=== PATIENT | female | born 1955 | race Caucasian/White ===

== ENCOUNTER → 2018-02-04 12:24 | Outpatient (CLI) | payer MEDICAID, SELFPAY ==
[2018-02-04 12:45] VITALS: BP 126/65; PULSE 88; RESP 16; O2SAT 100; BMI 31.4
--- NOTE | 2018-02-04 13:00 | RAD_ITS ---
PROCEDURE: LUMBAR MYELOGRAM DATE OF EXAMINATION: February 04, 2018. INDICATION: Female, 62 years old. Low back pain. PHYSICIAN: Blanco Valiente M.D. CONSENT: The patient's history and physical findings were reviewed. The lumbar myelogram procedure was discussed with the patient prior to signing a consent. SEDATION: Local anesthesia with 3 mL of 1% lidocaine was used. FLUOROSCOPY TIME (if supplied): (0:56) minutes/seconds Injection Information: 15 cc of Isovue-M 200. Number of images obtained: 4 TECHNIQUE: Digital fluoroscopy was used to identify a safe approach for the lumbar myelogram. The back was prepped and draped in usual fashion. Local anesthesia was utilized. Under fluoroscopic guidance a 22-gauge spinal needle was inserted into the spinal canal at the L4-5 level. 15 mL of Isovue 200 M was injected into the spinal canal. The patient is status post fusion and laminectomy at the L2-L3 and L3-L4 levels. There is good opacification of the spinal fluid. The nerve root sheaths are asymmetrically identified. There is no extradural defects. RAD/Lumbar Myelogram IMPRESSION: Normal lumbar myelogram. CT scan will follow. Electronically Signed: Blanco Valiente MD at 14:13 EST Tel [phone], Service support ,
--- NOTE | 2018-02-04 15:30 | CT_ITS ---
STUDY: CT LUMBAR SPINE WITH INTRATHECAL CONTRAST (LUMBAR CT MYELOGRAM) REASON FOR EXAM: Female, 62 years old. Chronic low back pain. Prior laminectomy and fusion at the L2-L3 and L3-L4 levels with prosthetic disc at the L3-L4 level. RADIATION DOSAGE (If Supplied By Facility): CTDIvol = ( 21.45 ) mGy, DLP = ( 601.69 ) mGycm TECHNIQUE: Transaxial images were obtained from the T12 vertebra through the S1 vertebra, following intrathecal administration of 15 ml of Isovue M200 contrast material, performed by Dr. Valiente. Please refer to this physicians technical notes for procedural details. Coronal and sagittal reconstructions were obtained. Individualized dose optimization techniques were used for this CT. COMPARISON: None. FINDINGS: Normal lumbar lordosis. There is no substantial scoliosis. Normal vertebrae of the lumbar spine. There is dependent layering of contrast material in the distal thecal sac. The conus medullaris terminates in a normal position at the L1-L2 level. There is no demonstrated cauda equina nerve root abnormality or intraspinal mass. L1-2: Anterior spondylosis. The disc space is well maintained. Minimal degree of central disc bulge causing minimal deformity of the thecal sac. No central canal stenosis is seen. L2-3: The patient is status post laminectomy with interpedicular screw fixation. There is no evidence of spinal stenosis. No evidence of neural foraminal stenosis. L3-4: The patient is status post laminectomy and interpedicular screw fixation. There is no evidence of herniated nucleus pulposis. No evidence of spinal stenosis. L4-5: Mild degree of facet joint osteoarthritis. Diffuse posterior disc bulge causing deformity of the thecal sac anteriorly. Minimal anterior listhesis of L4 on L5. There is mild degree of bilateral neural foraminal stenosis. L5-S1: Normal endplates. Normal disc height and morphology. Normal bilateral facet joints. Normal central canal and bilateral lateral recesses. Normal bilateral intervertebral neural foramina. There are degenerative changes of the bilateral sacroiliac joints. Normal visualized paraspinous soft tissue structures. CT/Spine Lumbar without Contrast IMPRESSION: Status post laminectomy at the L2-L3 and L3-L4 levels. Mild degree of degenerative changes as described. Diffuse posterior disc bulge at the L4-L5 level with a mild degree of narrowing of both neural foraminal stenosis. Electronically Signed: Blanco Valiente MD at 8:35 EST Tel [phone], Service support ,
[2018-02-04 15:39] VITALS: BP 130/47; PULSE 80; RESP 16; O2SAT 95
== END ==
PROVIDERS: Referring Provider Orthopaedic Surgery; Visit Provider Orthopaedic Surgery
DX: Z98.1 Arthrodesis status (principal)
CPT/HCPCS: 62284; 72131; 72265; Q9965

== ENCOUNTER 2019-04-24 17:51 | Emergency (ER) | payer MEDICAID, SELFPAY ==
[2019-04-24 17:52] VITALS: BP 180/85; PULSE 118; RESP 16; TEMP 36.6; O2SAT 99; BMI 28.3
--- NOTE | 2019-04-24 18:01 | CT_ITS ---
STUDY: CT BRAIN WITHOUT CONTRAST REASON FOR EXAM: Female, 63 years old. Headache after a fall RADIATION DOSAGE (If Supplied By Facility): CTDIvol = ( 44.99 ) mGy, DLP = ( 762.36 ) mGycm TECHNIQUE: Transaxial CT imaging of the brain was performed without administration of intravenous contrast material. Individualized dose optimization techniques were used for this CT. COMPARISON: No relevant priors. FINDINGS: Normal soft tissue structures. Normal calvarium. Normal size ventricles and extra-axial spaces for the patient''s age. There are areas of decreased attenuation within the white matter tracts of the supratentorial brain, consistent with microvascular disease changes. Normal basal ganglia and thalami. Normal brainstem. Normal cerebellum. There is no intracranial hemorrhage. There are no findings of an acute ischemic infarction. Normal visualized paranasal sinuses. CT/Brain/Head without Contrast IMPRESSION: Chronic involutional changes of the brain. Electronically Signed: Zach Valdivia MD at 18:59 EST , Service support ,
--- NOTE | 2019-04-24 18:01 | CT_ITS ---
STUDY: CT FACIAL BONES WITHOUT CONTRAST REASON FOR EXAM: Female, 63 years old. Pain after a fall RADIATION DOSAGE (If Supplied By Facility): CTDIvol = ( 29.38 ) mGy, DLP = ( 510.73 ) mGycm TECHNIQUE: The patient was scanned in a multi detector CT scanner. Sagittal and coronal images were reconstructed. Individualized dose optimization techniques were used for this CT. COMPARISON: None. FINDINGS: There is induration of the soft tissue anterior to the right maxillary sinus with a subtle soft tissue density suggesting hematoma. There is no associated fracture. Specifically, no evidence of nasal or zygomatic arch fracture. Normal orbital contreras and orbital contents. Normal nasal bones and anterior nasal spine. Normal facial bones. There is no demonstrated fracture. Normal visualized paranasal sinuses. CT/Sinus/Facial Bone IMPRESSION: Soft tissue swelling over the right maxilla with soft tissue density suggesting hematoma. No associated fracture. Electronically Signed: Zach Valdivia MD at 19:08 EST , Service support ,
--- NOTE | 2019-04-24 18:01 | CT_ITS ---
STUDY: CT CERVICAL SPINE WITHOUT CONTRAST REASON FOR EXAM: Female, 63 years old. Pain after a fall RADIATION DOSAGE (If Supplied By Facility): CTDIvol = ( 18.23 ) mGy, DLP = ( 420.0 ) mGycm TECHNIQUE: High resolution transaxial imaging was performed without contrast material. Sagittal and coronal images were reconstructed. Individualized dose optimization techniques were used for this CT. COMPARISON: None FINDINGS: Normal craniovertebral junction. Normal anterior atlantoaxial articulation. Normal odontoid process. Normal cervical lordosis. Normal vertebral bodies and posterior osseous elements. C2-3: Normal endplates. Normal disc height and morphology. Normal central canal and intervertebral neuroforamina. C3-4: Normal endplates. Normal disc height and morphology. Normal central canal and intervertebral neuroforamina. C4-5: Normal endplates. Normal disc height and morphology. Normal central canal and intervertebral neuroforamina. C5-6: Normal endplates. Normal disc height and morphology. Normal central canal and intervertebral neuroforamina. C6-7: Normal endplates. Normal disc height and morphology. Normal central canal and intervertebral neuroforamina. C7-T1: Normal endplates. Normal disc height and morphology. Normal central canal and intervertebral neuroforamina. Normal visualized soft tissue structures. No upper rib fracture or pneumothorax CT/Spine Cervical without Contras IMPRESSION: Normal unenhanced CT examination of the cervical spine. Electronically Signed: Zach Valdivia MD at 19:09 EST , Service support ,
--- NOTE | 2019-04-24 18:07 | ED.DCSUM_ITS ---
- ER Visit Summary Date of Service: 04/24/19 Chief Complaint: Fall History of Present Illness: The patient is a 63 F who fell at home. She tripped on a dog rug. She hit her right face, right hand, and right knee. She sustained a cut to her right hand. She did not lose consciousness. She denies blood thinners. Her tetanus is up-to-date. No other complaints. Physical Examination: Afebrile, hypertensive, heart rate 118. Patient has bruising to the right side of her face, otherwise head and neck are atraumatic. Nontender. Heart regular but tachycardic. Lungs clear. Abdomen soft. Chest and back nontender. Pelvis stable. Hips show good range of motion. Right knee diffusely tender with light touch, but otherwise normal. Good range of motion and extension. Neurovascular intact distally. Skin normal. Good strength and sensation distally, symmetric. Patient has a 1 cm laceration, linear, to her right palm. No foreign bodies visualized. No active bleeding. This appears to be superficial, but I will explore. Test Results: CT of her brain, C-spine, face pending. X-rays of her hand and knee are pending. Emergency Department Course and Treatment: Patient treated with morphine and Zofran while awaiting results. Hand x-ray showed soft tissue swelling and chronic changes. No fracture or foreign body. Knee x-ray showed nothing acute. She has postop changes. CT face showed a right maxillary hematoma without fracture. Cervical spine showed degenerative changes. Brain showed chronic changes. Hand laceration was irrigated and closed with a single simple interrupted suture. Wound care instructions given. Return right away for any complications or problems. Follow-up with primary care. Social work also saw the patient to help her arrange some outpatient resources as needed. Treatment Plan: As above Disposition: Discharge Impression: 1. Right facial contusion 2. Right hand laceration 1 cm 3. Knee pain, right This note was generated with [employer] software. It may contain incorrect words, spelling, and punctuation that were not noted in review of the chart prior to signing ED Disposition - Plan for ED Patient: Referrals: [facility] Doctor,Out of [NON-STAFF] -
[2019-04-24] MEDS: Ondansetron 4 MG/2 ML Vial IM (18:15)
[2019-04-24] MEDS: morphine 10 MG/ML Syringe 4 MG SC (18:15)
--- NOTE | 2019-04-24 18:35 | RAD_ITS ---
STUDY: X-RAY - RIGHT HAND REASON FOR EXAM: Female, 63 years old. Pain after fall TECHNIQUE: 3 view(s) of the hand. COMPARISON: None. FINDINGS: There has been apparent previous removal of the scaphoid and lunate. There is narrowing of the space between the distal radius, trapezium and capitate. There is a positive ulnar variant of the distal radioulnar articulation. There is diffuse demineralization of the carpal bones. Intercarpal arthrosis. Normal carpometacarpal articulation of the thumb. Normal second through fifth carpometacarpal joints. Normal metacarpi. Normal metacarpophalangeal joint of the thumb. Normal interphalangeal joint of the thumb. Normal proximal and distal phalanges of the thumb. Normal metacarpophalangeal joints of the second through fifth fingers. Normal proximal and distal interphalangeal joints of the second through fifth fingers. Normal phalanges of the second through fifth fingers. 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 Chondrocalcinosis and degenerative arthrosis noted in the remaining carpal bones No acute metacarpal or phalangeal fracture Volar soft tissue swelling but no plain film evidence of radiopaque foreign body Electronically Signed: Zach Valdivia MD at 19:12 EST , Service support ,
--- NOTE | 2019-04-24 18:35 | RAD_ITS ---
STUDY: X-RAY - RIGHT KNEE REASON FOR EXAM: Female, 63 years old. Pain after a fall TECHNIQUE: 4 view(s) of the knee. COMPARISON: None. FINDINGS: The right knee has been previously replaced. Components demonstrate anatomic alignment. No plain film evidence of hardware complication, failure, or acute traumatic abnormality. No joint effusion. RAD/Knee 4 or More Views IMPRESSION: Replaced right knee joint free of complication or acute abnormality Electronically Signed: Zach Valdivia MD at 18:58 EST , Service support ,
--- NOTE | 2019-04-24 19:15 | CM.ED ---
SOCIAL WORK INFORMANT: NURSETETO REASON FOR REFERRAL: RESOURCES MET WITH PATIENT AND FAMILY IN ROOM. INTRODUCED ROLE AND REASON FOR REFERRAL. PATIENT GAVE PERMISSION FOR THIS WORKER TO SPEAK OPENLY WITH FAMILY PRESENT. PATIENT DISCUSSED MEDICAL HISTORY WITH THIS WORKER. PATIENT HAS A HARD TIME WITH DIET AND FOOD CONSUMPTION D/T GASTRIC BYPASS. PATIENT HAS ALL NEEDED DME IN THE HOME, BUT WOULD BENEFIT FROM ADDITIONAL HELP HAS [facility]. PATIENT REFUSES [facility] PLAC[facility] AND STATES WISHES TO STAY IN HOME FOR LONG POSSIBLE. PATIENT HAD BEEN PLACED AT [facility] IN THE PAST AND ONLY STAYED IN FACILITY FOR 6 HOURS BEFORE RETURNING HOME. DISCUSSED PASSPORT SERVICES AND PATIENT IN AGREEMENT WITH REFERRAL. INFORMED PATIENT THIS WORKER WILL MAKE REFERRAL TOMORROW IT IS AFTER BUSINESS HOURS. PATIENT VERBALIZED UNDERSTANDING. THIS WORKER INFORMED PATIENT ONCE REFERRAL CONFIRMED WILL CALL AND UPDATE PATIENT. PLAN: HOME BEFORE WITH REFERRAL FOR PASSPORT SERVICES. Ruben JOHNSON MSW, CARDIOVASCULAR OR NURSE.
--- NOTE | 2019-04-24 19:50 | ED.DEP ---
ED Disposition - Plan for ED Patient: Instructions: FALL, Mechanical Referrals: [facility] Doctor,Out of [NON-STAFF] -
[2019-04-24] MEDS: Morphine 4 MG/ML Syringe SC (20:17)
[2019-04-24 20:23] VITALS: BP 167/81; PULSE 107; RESP 18; O2SAT 95
[2019-04-24] MEDS: Ondansetron ODT 4 MG Tablet PO (20:38)
--- NOTE | 2019-04-25 12:45 | CM.ED ---
SOCIAL WORK CALL TO [facility] FOR REFERRAL FOR PASSPORT SERVICES FOR PATIENT. ADVISED BY WORKER TO CALL PATIENT'S [facility] ELEVATOR BUILDER. CALL TO [facility] AND PROVIDED WITH PATIENT'S ELEVATOR BUILDER, RAMONITA CAMPBELL ([phone]). CALL TO RAMONITA, NO ANSWER, LEFT MESSAGE REGARDING REFERRAL AND THIS WORKER'S CALL BACK INFORMATION. AWAITING CALL BACK AT THIS TIME. Ruben JOHNSON, SWITCH INSPECTOR, DRAFTING LAYOUT WORKER.
== END 2019-04-24 21:02 | disposition home or self-care (01) ==
PROVIDERS: Emergency Provider Emergency Medicine
DX: S61.411A Laceration without foreign body of right hand, initial encounter (principal); S00.83XA Contusion of other part of head, initial encounter; M25.561 Pain in right knee; W18.09XA Striking against other object with subsequent fall, initial encounter; Y93.9 Activity, unspecified; Y92.9 Unspecified place or not applicable
CPT/HCPCS: 12001; 70450; 70486; 72125; 73130; 73564; 96372; 99285; J2405

== ENCOUNTER 2022-03-13 13:30 | Outpatient (RCR) | payer MEDICARE, MEDICAID, SELFPAY ==
--- NOTE | 2022-01-28 16:58 | HP.PTEVAL ---
Patient's Visit Information KAREN COOPER is a 66 year old F referred to Physical Therapy by GER BERG with a diagnosis of Lumbar Pain. Date of Evaluation: 01/28/22 Physical Therapist: Linda Arshad DPT - Visit Plan Frequency: 2x /Week Duration: 4 Weeks Plan: Focus on LE and core strength/stabilization GENTLE! HEP Given IE: seated marching, TA contraction, hip adduction with ball, glut sets, quad set. - Subjective Patient reports that she has had 6 back surgeries from L1-L5 over the past 10 years and has had 55 surgeries total- she still needs a left TKR. 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 She knew that she would need another back surgery- she sees Dr. Roman Yoon Feb 10. She was sent to PT by pain management- Dr. Emmanuel Berg. X-ray shows a L2-L4 fusion- New grade 1 anterolisthesis of L4-L5. She is currently having terrible pains- its gotten worse in the last few months- wears a pain patch- Gabapentin, Flexeril. Most of the time she has pain that radiates down both legs left >right- with pain in the lower back across the hole spine. The pain is constant. Sitting is impossible- standing for no more than 2 min. She can't find any relief. Worst: 10/10 [address] time. Its been that way for at least 2 months. Surgeon told her never to have therapy but pain management told her she had to come. She was told that it won't help her. Describes the pain as sharp at times- shooting down the nerve. Does have N/T that travels to her toes. Is having a nerve conduction study in her bilateral LE. She is also having a brain MRI due to an aneurism that they have been watching. She is having trouble driving due to not being able to crab picker her right leg. No injections recently but they want the MRI first. Injections didn't help last time. At this time she is fully I but she is able to do it- she has a set up that is currently working for her. No loss or change in bowel or bladder. She stumbles a lot and has had a few falls but not for about a year. PMHx/Meds: see list - Objective Posture: FH, RS- is unable to correct even with verbal and tactile cues. Gait: antalgic- slow lm- straight cane- forward posture- took 1 rest break for 150 feet. HR/TR: able with UE A. SLS: weight shift but reports pain. Palpation: tender throughout lumbar spine and bilateral hips. ROM: Lumbar: extn: neutral, Flexion: 90 degrees, SB and Rot: limited by 75%, Hip/Ankle/Knee: WFL- pain reported with all. Sensation: diminished to light touch throughout bilateral LE. Strength: Core: poor, Hip: 3/5 Knee: 3+/5, Ankle: 4/5 - Goals Goal 1:: Patient will be I with HEP and progression Goal Time Frame: 4-6 Weeks Goal 2:: Patient will ambulate >300 feet with LRD and no stops Goal Time Frame: 4-6 Weeks Goal 3:: Patient will maintain proper posture t/o tx session to demo increased core s/s Goal Time Frame: 4-6 Weeks Goal 4:: Patient will report 80% improvement Goal Time Frame: 4-6 Weeks - Rehabilitation Potential Physical Therapy Diagnosis: Patient presents with hypomobility- she has decreased LE and core strength/stabilization, flex, proprioception and muscular endurance leading to poor posture and increased pain with ADL's. - Anticipated Interventions Patient/Client Instruction: Educate patient on: Benefits of Fitness Program Therapeutic Exercise to Include: Strength training, Endurance training, Balance training, Coordination, Agility training, Body mechanics, Postural training, Flexibilty training, Gait and locomotor training, Neuromotor development, Dynamic Lumbar Stabilization, Scapular Strength/Stabilization For the Purpose of:: To improve muscle performance and motor function TENS: No Cryotherapy (ice pack, ice massage): Yes Thermo therapy (hot pack): Yes Ultrasound (thermal/non thermal): No Thank you for the opportunity to evaluate your patient. For Medicare and Medicare HMO plans, please review the plan of care and approve it. It will need to be FAXED BACK to us at [phone] for Medicare purposes. For Medicare only, by signing this I certify the plan of care. Please let me know if there are questions or concerns regarding this plan of care. Physician Signature: Date:
--- NOTE | 2022-06-22 08:13 | HP.PT.NRP ---
KAREN COOPER was seen in my office for initial evaluation on 01/28/22. The following Plan of Care was established for this patient: Initial Frequency: 2x /Week Initial Duration: 4 Weeks Patient/Client Instruction: Educate patient on: Benefits of Fitness Program Therapeutic Exercise to Include: Strength training, Endurance training, Balance training, Coordination, Agility training, Body mechanics, Postural training, Flexibilty training, Gait and locomotor training, Neuromotor development, Dynamic Lumbar Stabilization, Scapular Strength/Stabilization For the Purpose of:: To improve muscle performance and motor function TENS: No Cryotherapy (ice pack, ice massage): Yes Thermo therapy (hot pack): Yes Ultrasound (thermal/non thermal): No This patient was last seen in our office . Pertinent comments regarding their Physical therapy will appear below: Patient has not attended PT in over 30 days- appropriate to be d/c from PT and return to MD as appropriate At this point I will be discontinuing this patient from physical therapy. I would be happy to see this patient again in the future if found appropriate by the physician. Thank you! RAYMON FonsecaT
== END 2022-03-13 19:00 | disposition home or self-care (01) ==
LOC: PT 13:30
DX: M48.00 Spinal stenosis, site unspecified (principal); M54.50 Low back pain, unspecified
CPT/HCPCS: 97110; 97162

== ENCOUNTER → 2023-09-10 | Outpatient (CLI) | payer MEDICARE, MEDICAID, SELFPAY | END | disposition home or self-care (01) | PROVIDERS: Visit Provider Otolaryngology | DX: J32.9 Chronic sinusitis, unspecified (principal) | CPT/HCPCS: 87070; 87077; 87186; 87205 ==